=== PATIENT | female | born 1945 | race Caucasian/White ===

== ENCOUNTER 2018-01-29 14:40 | Inpatient (IN) ==
[2018-01-29] MEDS ORDERED: GADOBENATE DIMEGLUMINE 20 ML/VIAL IV ONE (14:41)
[2018-01-29] MEDS ORDERED: LORazepam 2 MG/ML VIAL IV ONE (14:57)
[2018-01-29] MEDS: HYDROmorphone 2 MG/ML VIAL IV PRN ×4 (15:16→23:31)
[2018-01-29 15:43] LABS: Basophils # (Auto) 0 K/mcL (0.0-0.3); Basophils % (Auto) 0.4 % (0.0-2.0); Eosinophils # (Auto) 0.1 K/mcL (0.0-0.7); Eosinophils % (Auto) 1.1 % (0.0-7.0); Granulocytes % (Auto) 80.2 % (38.0-78.0); Lymphocytes # (Auto) 1.7 K/mcL (1.5-4.8); Lymphocytes % (Auto) 13.8 % (15.5-49.0); Mean Cell Volume 90.3 fL (80.0-100.0); Mean Corpuscular HGB Conc 32.4 g/dL (31.0-36.0); Mean Corpuscular Hemoglobin 29.3 pg (26.0-34.0); Monocytes # (Auto) 0.5 K/mcL (0.1-0.9); Monocytes % (Auto) 4.5 % (1.0-12.0); Platelet Count 286 K/mcL (140-440); RBC 4.24 M/mcL (4.00-5.20); Red Cell Distribution Width 14.8 % (11.5-14.5)
[2018-01-29 16:03] LABS: ALT/SGPT 37 U/l (0-40); Albumin 3.6 gm/dL (3.2-5.2); Alkaline Phosphatase 63 U/L (39-117); Blood Urea Nitrogen 17 mg/dl (8-23); C-Reactive Protein 10.5 mg/dl (0.0-0.8)
--- NOTE | 2018-01-29 16:38 | Magnetic Resonance Report ---
History: Back pain, elevated white blood cell count and fever TECHNIQUE: Multiplanar imaging was performed using multiple pulse sequences of the lumbar spine. Magnevist contrast was injected and postcontrast T1-weighted views of the lumbar spine were acquired. FINDINGS: The post contrast views reveal enhancement of the bone marrow in the mid and upper sacrum. The greatest involvement is in the right side of the S1 and S2 segments. It extends to but not into the SI joints. Most of the sacrum is outside the field of view on the axial images since is a lumbar study and not a sacral study. On the prior CT scan of the lumbar spine done on 01/28/18 there was no obvious fracture or bone erosion in the sacrum There is degenerative disc disease throughout the lumbar spine but there is no evidence of discitis or osteomyelitis. No paraspinal abscess is present. There is mild soft tissue fullness anterior to the S1-2 segment of the sacrum. There is posterior bulging disks from L1-1-2 through L5-S1. There is severe disc space narrowing at L1-2 and L2-3 and mild narrowing at L4-5 and L5-S1. There is also arthritis in the facet joints bilaterally throughout the lumbar spine. Mild central canal stenosis is present at L4-5. Incidentally noted is a 2.7 cm cyst in left kidney and multiple small stones in the gallbladder. IMPRESSION: Edema or inflammation throughout the visualized portion of the sacrum. This could be due to osteomyelitis or an occult fracture. A dedicated MRI of the sacrum is recommended for more complete evaluation. Degenerative disc disease and arthritis in the lumbar spine but without evidence of discitis or osteomyelitis Klarissa Myers was called with the results Interpreted and Authenticated by: Guilherme Sepulveda 01/29/18
--- NOTE | 2018-01-29 16:43 | Emergency Department Note ---
Back Pain HPI - General Chief Complaint: Back Pain/Injury Stated Complaint: pos discitis Time Seen by Provider: 01/29/18 14:47 Source: patient Limitations: no limitations - History of Present Illness HPI Narrative: 72-year-old female presents with severe low back pain and unable to walk. Danya David, her primary care provider called over and said she was sending her to the ER. She has been seen both here and [facility] within the last she had a sudden onset of back pain, low-grade fevers including a temp of 100.6 in the clinic this morning, and elevated white blood cell count, CRP, and sed rate , she has been getting several injections in her knees for knee pain. When she was seen last she had a CT scan done which showed some degenerative disease in the spine but she refused an MRI because she is claustrophobic. Her primary care provider has great concern about discitis and patient states she is going to have an MRI today if she gets some sedation and that is what the primary care provider is requesting. Patient states if she sits perfectly still her pain is tolerable but if she moves whatsoever she is in severe pain. She cannot walk or care for herself at all. She denies any fall or trauma. States this was just a sudden onset 3 days ago. No dysuria or frequency. No abdominal pain. Has had some mild intermittent nausea. No vomiting or diarrhea. The patient does not feel like she is getting any better at all. Cannot manage pain at home with hydrocodone - Related Data Home Medications Medication Instructions Recorded Confirmed Ranitidine HCl [Acid Aluminum Welder] 150 mg PO BID 01/29/18 01/29/18 Previous Rx's Medication Instructions Recorded HYDROmorphone HCL [Dilaudid] 4 mg PO Q8 #20 tab 01/28/18 Ondansetron HCl [Zofran ODT] 4 mg SL Q4-6HP PRN #14 tab 01/28/18 Allergies Allergy/AdvReac Type Severity Reaction Status Date / Time Amoxicillin [From Augmentin] Allergy Severe Unknown Verified 01/28/18 09:30 cefuroxime [From Ceftin] Allergy Severe Unknown Verified 01/28/18 09:31 clarithromycin [From Biaxin] Allergy Severe Unknown Verified 01/28/18 09:31 clavulanic acid Allergy Severe Unknown Verified 01/28/18 09:30 [From Augmentin] doxycycline Allergy Severe Unknown Verified 01/28/18 09:29 fluoxetine Allergy Severe Unknown Verified 01/28/18 09:30 furosemide Allergy Severe Unknown Verified 01/28/18 09:32 ipratropium Allergy Severe Unknown Verified 01/28/18 09:32 moxifloxacin [From Avelox] Allergy Severe Unknown Verified 01/28/18 09:29 omeprazole [From Prilosec] Allergy Severe Unknown Verified 01/28/18 09:30 Sulfa (Sulfonamide Allergy Severe Unknown Verified 01/28/18 09:31 Antibiotics) Tetanus Vaccines and Toxoid Allergy Severe Unknown Verified 01/28/18 09:29 Triamterene Allergy Severe Unknown Verified 01/28/18 09:30 Review of Systems All systems ED: reviewed and negative except as stated. Past Medical History - Past Medical History Medical history: Reports: COPD (Rarely needs an inhaler but does use oxygen at night), GERD, other (Osteoarthritis affecting the right knee and she is a candidate for knee replacement.) Surgical history ED: Reports: non-contributory - Social History smoking status: Former smoker Alcohol use: Reports: None Drug use: Reports: none Physical Exam Limitations: no limitations General appearance: alert, in no apparent distress Head: atraumatic, normocephalic, normal inspection Eye: Present: normal appearance. Absent: conjunctival injection ENT: normal exam, normal oropharynx, mucous membranes moist, TM's normal bilaterally, normal external ear exam Neck: Present: normal inspection Chest: Present: normal inspection, symmetric chest wall rise Respiratory: Present: normal lung sounds bilaterally. Absent: respiratory distress, wheezes, accessory muscle use Cardiovascular: Present: regular rate, normal heart sounds Abdominal: Present: soft, normal bowel sounds. Absent: distention, tenderness, guarding Extremities: Present: normal inspection. Absent: pedal edema Back: Absent: full ROM (Greatly limited range of motion to lumbar spine related to pain. Pinpoint tenderness from L4 through S2 with palpation. No step-off or deformity.), CVA tenderness (R), CVA tenderness (L) Neurological: Present: alert, oriented X3. Absent: motor sensory deficit Psychiatric: Present: normal affect, normal mood Skin: Present: warm, dry, intact, normal color Course Course Narrative: I did speak with the radiologist after the MRI was done. He states initially there was no concerns for osteomyelitis and he was thinking that there is a probable small sacral fracture that was not initially seen on CT however knowing more about her history including a low-grade fever and elevated white count and so forth he states we really need an additional study meaning MRI of the sacrum with and without contrast. The problem is she cannot have that study done today because she is already received a dose of contrast and can have another one for about [address] Sepulveda does not believe we can rule out osteomyelitis until this additional study is done. Patient and her family are very concerned about her going home as she is in severe pain and cannot walk or care for herself at all and is not improving. They state they cannot manage her pain At 1710 I did talk to Dr. Sandoval who agrees to admit the patient. Vital Signs Temperature 98.5 F 01/29/18 14:41 Pulse Rate 84 01/29/18 14:41 Respiratory Rate 16 01/29/18 14:41 Blood Pressure 142/65 01/29/18 14:41 Pulse Oximetry (%) 92 01/29/18 14:41 Temperature 98.5 F 01/29/18 14:41 Pulse Rate 79 01/29/18 17:31 Respiratory Rate 16 01/29/18 14:41 Blood Pressure 144/80 01/29/18 17:31 Pulse Oximetry (%) 92 01/29/18 17:31 Back Pain/Injury - Lab Data Lab results reviewed: Yes I reviewed the patient's lab results. Result diagrams: 01/29/18 15:10 01/29/18 15:10 Lab Results 01/29/18 01/29/18 01/29/18 Range/Units 15:10 15:10 15:10 WBC 12.2 H (4.5-11.0) K/mcL RBC 4.24 (4.00-5.20) M/mcL Hgb 12.4 (12.0-15.0) g/dL Hct 38.3 (36.0-48.0) % MCV 90.3 (80.0-100.0) fL MCH 29.3 (26.0-34.0) pg MCHC 32.4 (31.0-36.0) g/dL RDW 14.8 H (11.5-14.5) % Plt Count 286 (140-440) K/mcL MPV 8.1 (7.4-10.4) fL Gran % 80.2 H (38.0-78.0) % Lymph % (Auto) 13.8 L (15.5-49.0) % [place] % (Auto) 4.5 (1.0-12.0) % Eos % (Auto) 1.1 (0.0-7.0) % Baso % (Auto) 0.4 (0.0-2.0) % Gran # 9.8 H (1.8-8.0) K/mcL Lymph # (Auto) 1.7 (1.5-4.8) K/mcL [place] # (Auto) 0.5 (0.1-0.9) K/mcL Eos # (Auto) 0.1 (0.0-0.7) K/mcL Baso # (Auto) 0 (0.0-0.3) K/mcL VBG Lactic Acid 0.7 (0.5-2.2) mmol/L Sodium 138 (133-145) mmol/L Potassium 3.8 (3.3-5.1) mmol/L Chloride 96 (96-108) mmol/L Carbon Dioxide 32 H (22-30) mmol/L Anion Gap 10.0 (8-16) BUN 17 (8-23) mg/dl Creatinine 0.6 (0.6-1.1) mg/dl GFR Calculation 92 Glucose 90 (70-105) mg/dL Calcium 9.2 (8.6-10.4) mg/dl Total Bilirubin 0.5 (0.0-1.0) mg/dL AST 16 (0-37) U/l ALT 37 (0-40) U/l Alkaline Phosphatase 63 (39-117) U/L C-Reactive Protein 10.5 H (0.0-0.8) mg/dl Total Protein 7.1 (5.9-8.4) gm/dL Albumin 3.6 (3.2-5.2) gm/dL Globulin 3.5 (2.2-3.7) gm/dL Albumin/Globulin Ratio 1.0 (1.0-2.3) Procalcitonin (<0.10) ng/mL 01/29/18 Range/Units 15:10 WBC (4.5-11.0) K/mcL RBC (4.00-5.20) M/mcL Hgb (12.0-15.0) g/dL Hct (36.0-48.0) % MCV (80.0-100.0) fL MCH (26.0-34.0) pg MCHC (31.0-36.0) g/dL RDW (11.5-14.5) % Plt Count (140-440) K/mcL MPV (7.4-10.4) fL Gran % (38.0-78.0) % Lymph % (Auto) (15.5-49.0) % [place] % (Auto) (1.0-12.0) % Eos % (Auto) (0.0-7.0) % Baso % (Auto) (0.0-2.0) % Gran # (1.8-8.0) K/mcL Lymph # (Auto) (1.5-4.8) K/mcL [place] # (Auto) (0.1-0.9) K/mcL Eos # (Auto) (0.0-0.7) K/mcL Baso # (Auto) (0.0-0.3) K/mcL VBG Lactic Acid (0.5-2.2) mmol/L Sodium (133-145) mmol/L Potassium (3.3-5.1) mmol/L Chloride (96-108) mmol/L Carbon Dioxide (22-30) mmol/L Anion Gap (8-16) BUN (8-23) mg/dl Creatinine (0.6-1.1) mg/dl GFR Calculation Glucose (70-105) mg/dL Calcium (8.6-10.4) mg/dl Total Bilirubin (0.0-1.0) mg/dL AST (0-37) U/l ALT (0-40) U/l Alkaline Phosphatase (39-117) U/L C-Reactive Protein (0.0-0.8) mg/dl Total Protein (5.9-8.4) gm/dL Albumin (3.2-5.2) gm/dL Globulin (2.2-3.7) gm/dL Albumin/Globulin Ratio (1.0-2.3) Procalcitonin < 0.05 (<0.10) ng/mL - Radiology Data Radiology results reviewed: Yes I reviewed the patient's radiology results. Disposition Pt seen by ACCESS CLERK/PA only: Yes Clinical Impression: Low back pain, Low grade fever, Elevated WBC count, Elevated C-reactive protein (CRP) Disposition: Xfer As Inpt ([facility]) Condition: Fair Referrals: Bushra David ARNP [Primary Care Provider] - Time of Disposition: 16:43
[2018-01-29] MEDS ORDERED: ONDANSETRON 4 MG/2 ML VIAL IV PRN (17:44)
[2018-01-29] MEDS ORDERED: NALOXONE HCL 0.4 MG/ML VIAL IV PRN (17:44)
[2018-01-29] MEDS ORDERED: ACETAMINOPHEN 325 MG TABLET PO PRN (17:44)
[2018-01-29] MEDS ORDERED: IPRATROPIUM/ALBUTEROL 3 ML AMPUL.NEB NEB PRN (19:23)
--- NOTE | 2018-01-29 19:23 | Internal Med History&Physical ---
Medical - H&P: HPI Patient information: Note initiated : 01/29/18 at 7:15 pm Service Date, if different from initiated Date: [] Patient: Cara Phipps 72 y/o F admitted on 01/29/18 for Possible Discitis. Chief Complaint: [] History of present illness: Ms. Phipps is a 72 year old F with h/o copd on 2.5 L oxygen at baseline presents to the emergency room from the clinic for evaluation of lower back pain. The patient reports the pain started approximately a week ago, she was seen by the PCP at that point in time, given an injection in the left side of the hip, some muscle relaxants and painkillers. We will also given a steroid Dosepak. The patient did not respond to the treatment regimen. The patient's pain was in the lower part of the back around the sacral region. This pain was sharp worse with activity and kept getting worse as the week progressed. She was seen at [facility] and she notes that nothing really was done. She then was evaluated [facility] yesterday. Labs were sent which showed some mild leukocytosis CT scan of the spine was done which did not show any fracture some spinal stenosis not critical. Patient was again seen by the primary care provider today noted to have elevated ESR elevated CRP, leukocytosis. The patient also developed a low-grade temperature of 100.6. The patient was finding it very difficult to ambulate because of severity of pain and was unable to take care of herself. The patient usually takes care of her . The patient was therefore sent to the emergency room for further evaluation. In the emergency room patient was hemodynamically stable afebrile heart rate 87 blood pressure 144 x 80 saturating 90% on 2.5 L of oxygen. Patient's blood work showed leukocytosis WBC 12.2, lactic acid 0.7, chemistry unremarkable, ESR done yesterday was 40 CRP done today is 10. Patient had a MRI of the lumbar spine which showed that there is possibility of inflammation versus fractured in the sacral region. The CT scan done yesterday did not show any fracture CT scan is usually more sensitive then an MRI for evaluation of fractures. We are therefore admitting the patient with the possible diagnosis of osteo-mellitus to the hospital. Patient will have sacral MRI without and with contrast to further evaluate sacral inflammation and plan for biopsy. The patient denies any history of acute trauma to the region, denies any fevers or chills or rigors denies any recent dental extraction or any recent surgery or procedures. All systems: reviewed and no additional remarkable complaints except as stated ( as per hpi rest neg) Medical - H&P: PMH Medical history: copd gerd fibromyalgia arthritis Surgical history: c spine fusion Pertinent family history: litter brother, cad, dm dad cad, [place], sister CAD Social history: lives with on oxygen ex smoker, quit this year etoh, quit 20 yrs ago no recreational substance use reported Medical - H&P: Meds Home Medications Medication Instructions Recorded Confirmed Type HYDROmorphone HCL [Dilaudid] 4 mg PO Q8 #20 tab 01/28/18 01/29/18 Rx Ondansetron HCl [Zofran ODT] 4 mg SL Q4-6HP PRN #14 tab 01/28/18 01/29/18 Rx Calcium Carb/Mag Ox/Zinc Sulf 3 tab PO DAILY 01/29/18 01/29/18 History Coq-10 1 tab PO DAILY 01/29/18 01/29/18 History Multivitamin [One Daily] 1 tab PO DAILY 01/29/18 01/29/18 History Ranitidine HCl [Acid Indian Nanny] 150 mg PO BID 01/29/18 01/29/18 History Allergies Allergy/AdvReac Type Severity Reaction Status Date / Time Amoxicillin [From Augmentin] Allergy Severe Other Verified 01/29/18 18:01 cefuroxime [From Ceftin] Allergy Severe Other Verified 01/29/18 18:01 clarithromycin [From Biaxin] Allergy Severe Other Verified 01/29/18 18:01 clavulanic acid Allergy Severe Other Verified 01/29/18 18:01 [From Augmentin] doxycycline Allergy Severe Other Verified 01/29/18 18:01 fluoxetine Allergy Severe Other Verified 01/29/18 18:01 furosemide Allergy Severe Other Verified 01/29/18 18:01 ipratropium Allergy Severe Other Verified 01/29/18 18:01 moxifloxacin [From Avelox] Allergy Severe Other Verified 01/29/18 18:01 omeprazole [From Prilosec] Allergy Severe Other Verified 01/29/18 18:01 Sulfa (Sulfonamide Allergy Severe Other Verified 01/29/18 18:01 Antibiotics) Tetanus Vaccines and Toxoid Allergy Severe Other Verified 01/29/18 18:01 Triamterene Allergy Severe Other Verified 01/29/18 18:01 Medical - H&P: Exam - Constitutional Vitals: Temp Pulse Resp BP Pulse Ox 98.5 F 87 16 144/82 90 01/29/18 18:16 01/29/18 18:16 01/29/18 18:16 01/29/18 18:16 01/29/18 18:16 Exam: GENERAL: The patient is a well-developed, well-nourished in no apparent distress. Is alert and oriented x3. Obese lady VITAL SIGNS: Reviewed and as noted elsewhere. HEENT: Head is normocephalic and atraumatic. Extraocular muscles are intact. Pupils are equal, round, and reactive to light. Nares appeared normal. Mouth appears any without lesions. Mucous membranes are moist. NECK: Normal to inspection, Supple, No lymphadenopathy or thyromegaly. LUNGS: Air entry equal on both sides, no wheezing, crackles or rhonchi noted. No accessory muscles of respiration HEART: Regular rate and rhythm normal, S1 and S2 heard, no Gallop, S3 or Rub Noted, No Gross murmur heard. ABDOMEN: Soft, nontender, and nondistended. Positive bowel sounds. No hepatosplenomegaly was noted. EXTREMITIES: No cyanosis, clubbing, rash, lesions or edema. NEUROLOGIC: Cranial nerves II through XII are grossly intact. Motor and Sensory System Grossly Intact PSYCHIATRIC: Normal affect, Normal Mood. Appropriate Behavior. SKIN: No ulceration or wounds noted, No jaundice, No rash noted. Medical - H&P: Reslt - Labs CBC & Chem 7: 01/29/18 15:10 01/29/18 15:10 Labs: Short CBC 01/29/18 Range/Units 15:10 WBC 12.2 H (4.5-11.0) K/mcL Hgb 12.4 (12.0-15.0) g/dL Hct 38.3 (36.0-48.0) % Plt Count 286 (140-440) K/mcL BMP 01/29/18 15:10 Sodium 138 Potassium 3.8 Chloride 96 Carbon Dioxide 32 H BUN 17 Creatinine 0.6 Glucose 90 Calcium 9.2 Liver Function 01/29/18 Range/Units 15:10 Total Bilirubin 0.5 (0.0-1.0) mg/dL AST 16 (0-37) U/l ALT 37 (0-40) U/l Alkaline Phosphatase 63 (39-117) U/L Albumin 3.6 (3.2-5.2) gm/dL Medical - H&P: A/P - Narrative A/P Narrative: A/P Acute osteomyelitis Sacrum COPD Chronic respiratory failure GERD h/o Arthritis Fibromyalgia Plan Admit to med surg Sacral MRI tomorrow Plan for possible biospy of infected bone, and then start abx, no e/o sepsis at this time to warrant abx initiation. resume home meds consult ID DVT hep sq Regular diet DNR code status.
[2018-01-29] MEDS ORDERED: ALBUTEROL SULFATE 2.5 MG/3 ML NEBULIZER NEB PRN (19:24)
[2018-01-29] MEDS: BUDESONIDE 0.5 MG/2 ML AMPUL.NEB NEB SCH (20:34)
[2018-01-29] MEDS: 0.9 % SODIUM CHLORIDE 10 ML SYRINGE IV SCH (20:48)
[2018-01-29] MEDS: HEPARIN 5,000 UNIT/ML VIAL SQ SCH (20:48)
[2018-01-29] MEDS ORDERED: RANITIDINE HCL 150 MG PO SCH (21:00)
[2018-01-29] MEDS: FAMOTIDINE 20 MG TABLET PO SCH (21:19)
[2018-01-29] MEDS: oxyCODONE HCL 5 MG TABLET PO PRN (23:30)
[2018-01-30] MEDS: oxyCODONE HCL 5 MG TABLET PO PRN (05:05)
[2018-01-30] MEDS: 0.9 % SODIUM CHLORIDE 10 ML SYRINGE IV SCH ×3 (05:06→21:13)
[2018-01-30 06:36] LABS: Basophils # (Auto) 0 K/mcL (0.0-0.3); Basophils % (Auto) 0.2 % (0.0-2.0); Eosinophils # (Auto) 0.2 K/mcL (0.0-0.7); Eosinophils % (Auto) 2.4 % (0.0-7.0); Granulocytes % (Auto) 73.4 % (38.0-78.0); Lymphocytes # (Auto) 1.7 K/mcL (1.5-4.8); Lymphocytes % (Auto) 18.2 % (15.5-49.0); Mean Cell Volume 90.7 fL (80.0-100.0); Mean Corpuscular HGB Conc 32.9 g/dL (31.0-36.0); Mean Corpuscular Hemoglobin 29.9 pg (26.0-34.0); Monocytes # (Auto) 0.5 K/mcL (0.1-0.9); Monocytes % (Auto) 5.8 % (1.0-12.0); Platelet Count 246 K/mcL (140-440); RBC 3.65 M/mcL (4.00-5.20); Red Cell Distribution Width 14.9 % (11.5-14.5)
[2018-01-30 06:51] LABS: ALT/SGPT 29 U/l (0-40); Albumin/Globulin Ratio 0.9 (1.0-2.3); Alkaline Phosphatase 64 U/L (39-117); Bilirubin,Direct < 0.2 mg/dL (0.0-0.3); Blood Urea Nitrogen 18 mg/dl (8-23); Gamma Glutamyl Transpeptidase 28 U/L (5-36); Uric Acid 4.6 mg/dL (2.5-8.0)
[2018-01-30 07:15] LABS: Erythrocyte Sedimentation Rate 57 mm/hr (0-20)
--- NOTE | 2018-01-30 07:52 | XRay Report ---
HISTORY: Hypoxia FINDINGS: A prominent epicardial fat pad is present adjacent to the right heart border. This was confirmed on the prior chest CT on 08/12/16. The lungs are clear and there is no evidence of pneumonia, congestive heart failure, adenopathy or pleural effusion. The heart size is normal. IMPRESSION: Normal chest Interpreted and Authenticated by: Guilherme Sepulveda 01/30/18
[2018-01-30] MEDS: HYDROmorphone 2 MG/ML VIAL IV PRN ×3 (09:28→19:47)
[2018-01-30] MEDS: FAMOTIDINE 20 MG TABLET PO SCH ×2 (09:29→21:11)
[2018-01-30] MEDS: BUDESONIDE 0.5 MG/2 ML AMPUL.NEB NEB SCH ×2 (09:54→21:17)
[2018-01-30] MEDS: HEPARIN 5,000 UNIT/ML VIAL SQ SCH ×2 (09:56→21:11)
--- NOTE | 2018-01-30 12:48 | Internal Med Progress Note ---
Medical - PN: Subj Patient information: Note initiated : 01/30/18 at 12:45 pm Service Date, if different from initiated Date: [] Patient: Cara Phipps 72 y/o F admitted on 01/29/18 for Possible Discitis/ Osteomyelitis Sacrum. Chief Complaint: [] Interval history: Ms. Phipps is a 72 year old F with h/o copd on 2.5 L oxygen at baseline presents to the emergency room from the clinic for evaluation of lower back pain. The patient reports the pain started approximately a week ago, she was seen by the PCP at that point in time, given an injection in the left side of the hip, some muscle relaxants and painkillers. We will also given a steroid Dosepak. The patient did not respond to the treatment regimen. The patient's pain was in the lower part of the back around the sacral region. This pain was sharp worse with activity and kept getting worse as the week progressed. She was seen at [facility] and she notes that nothing really was done. She then was evaluated [facility] yesterday. Labs were sent which showed some mild leukocytosis CT scan of the spine was done which did not show any fracture some spinal stenosis not critical. Patient was again seen by the primary care provider today noted to have elevated ESR elevated CRP, leukocytosis. The patient also developed a low-grade temperature of 100.6. The patient was finding it very difficult to ambulate because of severity of pain and was unable to take care of herself. The patient usually takes care of her . The patient was therefore sent to the emergency room for further evaluation. In the emergency room patient was hemodynamically stable afebrile heart rate 87 blood pressure 144 x 80 saturating 90% on 2.5 L of oxygen. Patient's blood work showed leukocytosis WBC 12.2, lactic acid 0.7, chemistry unremarkable, ESR done yesterday was 40 CRP done today is 10. Patient had a MRI of the lumbar spine which showed that there is possibility of inflammation versus fractured in the sacral region. The CT scan done yesterday did not show any fracture CT scan is usually more sensitive then an MRI for evaluation of fractures. We are therefore admitting the patient with the possible diagnosis of osteo-mellitus to the hospital. Patient will have sacral MRI without and with contrast to further evaluate sacral inflammation and plan for biopsy. The patient denies any history of acute trauma to the region, denies any fevers or chills or rigors denies any recent dental extraction or any recent surgery or procedures. 01/30 Pt seen examined no acute overnight issues still in pain Pertinent ROS: Denies headache, dizziness Denies chest pain, palpitations Denies cough or shortness of breath Denies abdominal pain, nausea or vomiting. - Constitutional Vitals: Vital Signs Temp Pulse Resp BP Pulse Ox 97.9 F 65 16 146/76 98 01/30/18 11:23 01/30/18 09:55 01/30/18 11:23 01/30/18 11:23 01/30/18 11:23 Period Temp Pulse Resp BP Sys/Nath Pulse Ox Last 24 Hr 97.6 F-98.5 F 64-93 16-20 111-146/65-84 88-98 Intake and Output 01/29/18 01/30/18 01/30/18 21:59 05:59 13:59 Intake Total 1000 / 1000 800 / 800 Output Total 250 / 250 1100 / 1100 1200 / 1200 Balance 750 / 750 -300 / -300 -1200 / -1200 Weight 220 lb Intake & Output: Intake & Output 01/29/18 01/30/18 01/30/18 21:59 05:59 13:59 Intake Total 1000 / 1000 800 / 800 Output Total 250 / 250 1100 / 1100 1200 / 1200 Balance 750 / 750 -300 / -300 -1200 / -1200 Weight 220 lb Intake: Oral 1000 / 1000 800 / 800 Output: Void Amount 250 / 250 1100 / 1100 1200 / 1200 Other: Meal Dinner Percent of Meal Consumed 100% Feeding Ability Independent Urine Color Bright Yellow Urine Odor Normal Exam: Constitutional; Afebrile, cooperative, alert, not in distress. Eyes- No icterus, , No periorbital swelling Ears- Ext ear normal, hearing normal to conversation. Neck- Midline trachea, supple Respiratory system: Air Entry equal on both sides, No crackles or wheezing, no rhonchi. CVS- Rate rhythm regular, S1,S2 heard, no gallop, no rub. Abdomen- Soft nontender abdomen, no organomegaly, no tenderness, no guarding or rigidity, JEWEL HOLE GAUGER- AOOx3, moving all extremities, no gross focal deficit noted. Medical - PN: Obj Da - Labs CBC & Chem 7: 01/30/18 04:48 01/30/18 04:48 Labs: Abnormal Lab Results 01/30/18 01/30/18 01/29/18 04:48 04:48 15:10 WBC RBC 3.65 L Hgb 10.9 L Hct 33.1 L RDW 14.9 H Gran % Lymph % (Auto) Gran # ESR 57 H Carbon Dioxide 33 H 32 H Glucose 106 H C-Reactive Protein 10.5 H Albumin 3.0 L Albumin/Globulin Ratio 0.9 L 01/29/18 15:10 WBC 12.2 H RBC Hgb Hct RDW 14.8 H Gran % 80.2 H Lymph % (Auto) 13.8 L Gran # 9.8 H ESR Carbon Dioxide Glucose C-Reactive Protein Albumin Albumin/Globulin Ratio Meds: Medications Acetaminophen (Tylenol) 650 mg PO Q6HP PRN PRN Reason: PAIN/FEVER > 101 Albuterol Sulfate (Ventolin) 2.5 mg NEB Q2HP PRN PRN Reason: Shortness Of Breath Budesonide (Pulmicort) 0.5 mg NEB Q12 [facility] Last Admin: 01/30/18 09:54 Dose: Not Given Famotidine (Pepcid) 20 mg PO BID [facility] Last Admin: 01/30/18 09:29 Dose: 20 mg Heparin Sodium (Porcine) (Heparin) 5,000 unit SQ Q12 [facility] Last Admin: 01/30/18 09:56 Dose: 5,000 unit Hydromorphone HCl (Dilaudid) 0.5 mg IV Q2HP PRN PRN Reason: PAIN LEVEL > 6 Last Admin: 01/30/18 09:28 Dose: 0.5 mg Naloxone HCl (Narcan) 0.1 mg IV Q2MIN PRN PRN Reason: Opiate Reversal Ondansetron HCl (Zofran) 4 mg IV Q6HP PRN PRN Reason: Nausea And Vomiting Oxycodone HCl (Roxicodone) 5 mg PO Q4HP PRN PRN Reason: PAIN LEVEL 3-6 Last Admin: 01/30/18 05:05 Dose: 5 mg Sodium Chloride (Saline Flush) 10 ml IV Q8 [facility] Last Admin: 01/30/18 05:06 Dose: 10 ml Medical - PN: A/P - Time Spent With Patient Total time spent is greater than 50% in coordination of care (as documented) at patient's floor/unit and/or counseling patient: - Narrative A/P Narrative: A/P Acute osteomyelitis Sacrum COPD Chronic respiratory failure GERD h/o Arthritis Fibromyalgia Plan Sacral MRI today Plan for possible biospy of infected bone, and then start abx, no e/o sepsis at this time to warrant abx initiation. resume home meds pain management with po tylenol, celecoxib, prn oxycodone, iv dilaudid prn. consult ID echo done results awaited. DVT hep sq Regular diet DNR code status. Medical - PN: Qual - VTE Deep Vein Thrombosis/Pulmonary Embolism Present on Admission: No
[2018-01-30] MEDS: CELECOXIB 200 MG CAPSULE PO SCH (13:24)
[2018-01-30] MEDS ORDERED: LORazepam 2 MG/ML VIAL IV ONE (13:31)
[2018-01-30] MEDS: ACETAMINOPHEN 500 MG TABLET PO SCH ×2 (15:13→21:12)
[2018-01-30] MEDS ORDERED: GADOTERIDOL INJ 20 ML/VIAL IV ONE (16:30)
--- NOTE | 2018-01-30 17:11 | Magnetic Resonance Report ---
History: Sacral pain and possible osteomyelitis and discitis. TECHNIQUE: Multiplanar imaging was performed using multiple pulse sequences. Patient received ProHance contrast intravenously and T1 weighted postcontrast views were obtained. FINDINGS: There is generalized bone marrow edema throughout the lateral ala of the sacrum extending up to but not involving the SI joints. There is also a horizontal component which extends through the synchondrosis between S1 and S2. This has low signal on T1 and increased signal on T2 and has enhancement with contrast. This has the "Honda sign" which is associated with insufficiency fractures of the sacrum. There is a very subtle soft tissue swelling anterior to the edema/inflammatory changes at the synchondrosis of S1 and S2. In retrospect, on the prior lumbar CT done on 01/28/18 there was a subtle buckle fracture in the cortex at this same level. The absence of inflammatory changes or edema in the SI joints would make osteomyelitis/sacroiliitis a less likely consideration. There is also normal signal within the L5-S1 disc. No pelvic abscess is present. IMPRESSION: Nondisplaced sacral fracture which was occult on the prior CT scan. Dr. Sandoval was called with the results Interpreted and Authenticated by: Guilherme Sepulveda 01/30/18
[2018-01-31] MEDS: 0.9 % SODIUM CHLORIDE 10 ML SYRINGE IV SCH (05:54)
[2018-01-31 06:38] LABS: Basophils # (Auto) 0 K/mcL (0.0-0.3); Basophils % (Auto) 0.4 % (0.0-2.0); Eosinophils # (Auto) 0.2 K/mcL (0.0-0.7); Eosinophils % (Auto) 3.5 % (0.0-7.0); Granulocytes % (Auto) 63.3 % (38.0-78.0); Lymphocytes # (Auto) 1.6 K/mcL (1.5-4.8); Lymphocytes % (Auto) 26.5 % (15.5-49.0); Mean Cell Volume 90.6 fL (80.0-100.0); Mean Corpuscular HGB Conc 32.7 g/dL (31.0-36.0); Mean Corpuscular Hemoglobin 29.6 pg (26.0-34.0); Monocytes # (Auto) 0.4 K/mcL (0.1-0.9); Monocytes % (Auto) 6.3 % (1.0-12.0); Platelet Count 235 K/mcL (140-440); RBC 3.68 M/mcL (4.00-5.20); Red Cell Distribution Width 14.7 % (11.5-14.5)
[2018-01-31] MEDS: HYDROmorphone 2 MG/ML VIAL IV PRN (06:59)
[2018-01-31 07:17] LABS: ALT/SGPT 23 U/l (0-40); Alkaline Phosphatase 55 U/L (39-117); Bilirubin,Direct < 0.2 mg/dL (0.0-0.3); Blood Urea Nitrogen 15 mg/dl (8-23); Gamma Glutamyl Transpeptidase 29 U/L (5-36); Uric Acid 4.9 mg/dL (2.5-8.0)
[2018-01-31] MEDS: BUDESONIDE 0.5 MG/2 ML AMPUL.NEB NEB SCH (09:26)
[2018-01-31] MEDS: FAMOTIDINE 20 MG TABLET PO SCH (09:33)
[2018-01-31] MEDS: HEPARIN 5,000 UNIT/ML VIAL SQ SCH (09:33)
[2018-01-31] MEDS: ACETAMINOPHEN 500 MG TABLET PO SCH (09:33)
[2018-01-31] MEDS: CELECOXIB 200 MG CAPSULE PO SCH (09:50)
[2018-01-31] MEDS ORDERED: HEPARIN/NS 500 ML IV ONE (10:26)
--- NOTE | 2018-01-31 11:12 | Discharge Summary ---
Medical - DS: Prov Patient information: Note initiated : 01/31/18 at 11:09 am Service Date, if different from initiated Date: [] Patient: Cara Phipps 72 y/o F admitted on 01/29/18 for Possible Discitis/ Osteomyelitis Sacrum. Chief Complaint: [] Date of admission: 01/29/18 17:45 Discharge date: 01/31/18 Primary care physician: Bushra David Admitting clinician: Sridhar Sandoval Consults: 01/29/18 Consult to Physician [CONS] Stat Comment: Consulting Provider: Sridhar Sandoval Reason For Exam: Physician to Consult 01/29/18 19:37 Consult to Infectious Disease [CONS] Routine Comment: Consulting Provider: Fred Galvan Reason For Exam: Physician to Consult Discharging clinician: Sridhar Sandoval Medical - DS: Meds - Discharge Medications Prescriptions: Celecoxib [Celebrex] 200 mg PO DAILY #30 cap Active and Home Medications: Home Medications HYDROmorphone HCL [Dilaudid] 4 mg PO Q8 #20 tab 01/28/18 [Rx Confirmed 01/29/18 Last Taken 01/29/18 11:45] Ondansetron HCl [Zofran ODT] 4 mg SL Q4-6HP PRN #14 tab 01/28/18 [Rx Confirmed 01/29/18 Last Taken Unknown] Calcium Carb/Mag Ox/Zinc Sulf 3 tab PO DAILY 01/29/18 [History Confirmed Last Taken 01/28/18] Coq-10 1 tab PO DAILY 01/29/18 [History Confirmed 01/29/18 Last Taken 01/28/18] Multivitamin [One Daily] 1 tab PO DAILY 01/29/18 [History Confirmed 01/29/18 Last Taken 01/28/18] Ranitidine HCl [Acid International Manager] 150 mg PO BID 01/29/18 [History Confirmed Last Taken Unknown] Medical - DS: Hosp Hospital course: Ms. Phipps is a 72 year old F with h/o copd on 2.5 L oxygen at baseline presents to the emergency room from the clinic for evaluation of lower back pain. The patient reports the pain started approximately a week ago, she was seen by the PCP at that point in time, given an injection in the left side of the hip, some muscle relaxants and painkillers. We will also given a steroid Dosepak. The patient did not respond to the treatment regimen. The patient's pain was in the lower part of the back around the sacral region. This pain was sharp worse with activity and kept getting worse as the week progressed. She was seen at [facility] and she notes that nothing really was done. She then was evaluated [facility] yesterday. Labs were sent which showed some mild leukocytosis CT scan of the spine was done which did not show any fracture some spinal stenosis not critical. Patient was again seen by the primary care provider today noted to have elevated ESR elevated CRP, leukocytosis. The patient also developed a low-grade temperature of 100.6. The patient was finding it very difficult to ambulate because of severity of pain and was unable to take care of herself. The patient usually takes care of her . The patient was therefore sent to the emergency room for further evaluation. In the emergency room patient was hemodynamically stable afebrile heart rate 87 blood pressure 144 x 80 saturating 90% on 2.5 L of oxygen. Patient's blood work showed leukocytosis WBC 12.2, lactic acid 0.7, chemistry unremarkable, ESR done yesterday was 40 CRP done today is 10. Patient had a MRI of the lumbar spine which showed that there is possibility of inflammation versus fractured in the sacral region. The CT scan done yesterday did not show any fracture CT scan is usually more sensitive then an MRI for evaluation of fractures. We are therefore admitting the patient with the possible diagnosis of osteo-mellitus to the hospital. Patient will have sacral MRI without and with contrast to further evaluate sacral inflammation and plan for biopsy. The patient denies any history of acute trauma to the region, denies any fevers or chills or rigors denies any recent dental extraction or any recent surgery or procedures. Patient was admitted to the hospital with the possibility of acute osteomyelitis of the sacral region. Patient had low-grade temperature elevated ESR on presentation. Patient underwent an MRI of the sacral region without and with contrast. The studies were reviewed by radiology in conjunction with the CT scan report. The radiologist felt that based on the MRI report and the re- review of the CT scan report the patient has a sacral insufficiency fracture and not osteomyelitis. Patient was not started on any antibiotics. Patient still has some pain in the sacral region, however feels much better compared to the day of presentation. I do not feel that any further workup is warranted. Patient wishes to go home today. She feels comfortable going home. I will start the patient on 1 g Tylenol 3 times a day, celecoxib 200 mg once daily, patient already has oral Dilaudid from a previous ER visit which he plans to take. I have advised her to get in touch with the primary care provider for further narcotic medications if necessary. I have not made any changes to the patient's chronic home medication list. Discharge diagnosis: sacral fracture - Time Spent with Patient Total time spent providing and/or coordinating discharge services: Less than 30 minutes Medical - DS: Exam - Constitutional Vitals: Vital Signs Temp Pulse Pulse Resp BP Pulse Ox 01/31/18 07:18 97.9 F 18 138/69 97 01/31/18 04:00 97.3 F 62 20 143/80 95 01/31/18 00:00 98.3 F 62 16 105/59 97 01/30/18 21:20 72 18 97 01/30/18 21:17 72 18 01/30/18 20:00 97.6 F 62 20 118/63 93 01/30/18 15:22 97.9 F 18 128/62 95 01/30/18 11:23 97.9 F 16 146/76 98 Intake and Output 01/30/18 01/31/18 01/31/18 21:59 05:59 13:59 Intake Total 860 / 860 400 / 400 163 / 163 Output Total 400 / 400 1650 / 1650 Balance 460 / 460 -1250 / -1250 163 / 163 Intake: Oral 860 / 860 400 / 400 163 / 163 Output: Void Amount 400 / 400 1650 / 1650 Other: Urine Appearance Clear Clear Urine Color Pale Pale Urine Odor Normal Stool Size Moderate Stool Color Brown Stool Consistency Formed # Bowel Movements 1 Weight 229 lb 8 oz Additional comments: Constitutional; Afebrile, cooperative, alert, not in distress. Respiratory system: Air Entry equal on both sides, No crackles or wheezing, no rhonchi. CVS- Rate rhythm regular, S1,S2 heard, no gallop, no rub. Abdomen- Soft nontender abdomen, no organomegaly, no tenderness, no guarding or rigidity, INK MAKER- AOOx3, moving all extremities, no gross focal deficit noted. Medical - DS: Data Labs on day of discharge: Labs from last 24 hours 01/31/18 01/31/18 04:29 04:29 WBC 6.0 RBC 3.68 L Hgb 10.9 L Hct 33.4 L MCV 90.6 MCH 29.6 MCHC 32.7 RDW 14.7 H Plt Count 235 MPV 8.2 Gran % 63.3 Lymph % (Auto) 26.5 [place] % (Auto) 6.3 Eos % (Auto) 3.5 Baso % (Auto) 0.4 Gran # 3.8 Lymph # (Auto) 1.6 [place] # (Auto) 0.4 Eos # (Auto) 0.2 Baso # (Auto) 0 Sodium 143 Potassium 4.4 Chloride 101 Carbon Dioxide 33 H Anion Gap 9.0 BUN 15 Creatinine 0.6 GFR Calculation 92 Glucose 91 Uric Acid 4.9 Calcium 9.3 Phosphorus 3.4 Magnesium 2.1 Total Bilirubin 0.2 Direct Bilirubin < 0.2 GGT 29 AST 11 ALT 23 Alkaline Phosphatase 55 Lactate Dehydrogenase 198 Total Protein 6.1 Albumin 3.0 L Globulin 3.1 Albumin/Globulin Ratio 1.0 Triglycerides 73 Preliminary micro results at discharge 01/29/18 15:05 Blood Culture - Preliminary Blood 01/29/18 15:10 Blood Culture - Preliminary Blood Medical - DS: A/P - Patient/Caregiver Discharge Instructions Activity: increase activity as tolerated Diet: Regular Diet Additional Instructions: Please take Acetaminophen (tylenol ) 1000mg three times a day Take celecoxib 200mg once daily Take hydromorphone (dilaudid) as prescribed, talk to your PCP if you need a refill on this. Go to the ER if worsening symptoms, chest pain, fever or any other acute concerns. - Follow up Plan Follow up with: Bushra David ARNP [Primary Care Provider] - Disposition: Home, Self-Care Prognosis: Fair Rehab Potential: Fair I certify that the patient requires SNF services: No Overall status at discharge: patient is progressing back to baseline Medical - DS: Qual - VTE Deep Vein Thrombosis/Pulmonary Embolism Present on Admission: No
== END 2018-01-31 13:00 | disposition home or self-care (01) | DRG 543 ==
LOC: ED 14:40 → MEDSUR 17:38
PROVIDERS: ADMIT Internal Medicine; ATTEND Internal Medicine